=== PATIENT | male | born 1990 | race Caucasian/White ===

== ENCOUNTER 2021-11-13 08:41 | Emergency (ER) | payer BC ==
[2021-11-13 09:27] LABS: HEMOGLOBIN 17.6 gm/dl (14.0-17.5); RED BLOOD COUNT 5.64 M/UL (4.20-5.50); WHITE BLOOD COUNT 12.8 K/UL (4.5-11.0)
[2021-11-13 09:52] LABS: BUN/CREATININE RATIO 15 (0-10)
[2021-11-13 17:19] LABS: ADENOVIRUS F 40/41 Not Detected (Negative); ASTROVIRUS Not Detected (Negative); CAMPYLOBACTER Not Detected (Negative); CRYPTOSPORIDIUM Not Detected (Negative); E.COLI 0157 Not Detected (Negative); ENTAMOEBA HISTOLYTICA Not Detected (Negative); ENTEROAGGREGATIVE E.COLI (EAEC Not Detected (Negative); GIARDIA LAMBLIA Not Detected (Negative); NOROVIRUS GI/GII Not Detected (Negative); PLESIOMONAS SHIGELLOIDES Not Detected (Negative); ROTOVIRUS A Not Detected (Negative); SALMONELLA Not Detected (Negative); SAPOVIRUS Not Detected (Negative); SHIGA-LIK TOX.PRO.E.COLI (STEC Not Detected (Negative); VIBRIO Not Detected (Negative); VIBRIO CHOLERAE Not Detected (Negative); YERSINIA ENTEROCOLITICA Not Detected (Negative)
[2021-11-13] MEDS ORDERED: ZOFRAN 4 MG TAB4 MG PO (17:20)
[2021-11-13 19:09] LABS: CLOSTRIDIUM DIFFICILE TOX A/B Not Detected (Negative); ENTEROPATHOGENIC E.COLI (EPEC) DETECTED (Negative); ENTEROTOXIGENIC E.COLI (ETEC) DETECTED (Negative)
[2021-11-14 06:41] LABS: SHIG/ENTEROINVAS.ECOLI (EIEC) DETECTED (Negative)
== END 2021-11-13 17:40 | disposition home or self-care (01) ==
LOC: ER1 08:41
PROVIDERS: Physician Assistant Medical
DX: R10.84 Generalized abdominal pain (principal); R11.2 Nausea with vomiting, unspecified; R19.7 Diarrhea, unspecified; F17.210 Nicotine dependence, cigarettes, uncomplicated; Z88.0 Allergy status to penicillin
CPT/HCPCS: 74018; 80053; 81001; 85025; 87507; 96361; 96374; 96375; 99284; J2270; J2405; Q9963; Q9967